=== PATIENT | female | born 1990 | race Caucasian/White ===

== ENCOUNTER 2016-12-29 09:28 | Emergency (ER) | payer MEDICAID ==
[~2016-12-29] VITALS: Ht 172.7 cm; Wt 82.0 kg
[~2016-12-29 09:28] MED LIST: IBUP800T23 PO; MELO7.5; NORC10TA2 PO; walking boot
[2016-12-29 09:31] VITALS: BP 150/96; PULSE 125; RESP 16; TEMP 98.8; O2SAT 100
[2016-12-29] MEDS ORDERED: KETOROLAC TROMETHAMINE 60 MG/2 ML (IM) VIAL IM ONE (09:45)
--- NOTE | 2016-12-29 09:48 | PD ---
HPI Chief Complaint: Injury Time Seen by Provider: 09:38 Travel History International Travel<30 days: No Contact w/Intl Traveler<30days: No Traveled to known affect area: No History of Present Illness HPI 26yo F with no significant PMH presents to the ED with c/o right middle finger pain s/p fall yesterday. Pt slipped on shoe and fell with outstretched hands yesterday and thinks she stubbed her right middle finger. She woke up with more pain in her right middle finger and came to the ED for evaluation. Denies any numbness, weakness, fever, head injury, chest pain, sob, n/v, abdominal pain. Pt did not take any pain medication at home. PFSH Past Medical History Hx Anticoagulant Therapy: No Diabetes: No ?: Not : 2 Para: 1 Tubal Ligation: Yes Past Surgical History Tonsillectomy: Yes Social History Alcohol Use: No Tobacco Use: Yes (1/2 PPD) Substance Use: No Allergies-Medications (Allergen,Severity, Reaction): Coded Allergies: No Known Allergies (Unverified , 12/29/16) Reported Meds & Prescriptions Reported Meds & Active Scripts Active Ibuprofen 600 Mg Tab 600 Mg PO Q8HR PRN Review of Systems Except as stated in HPI: all other systems reviewed are Neg Physical Exam Narrative GENERAL: 26yo F not in distress. SKIN: Warm and dry. HEAD: Atraumatic. Normocephalic. NECK: Trachea midline. No JVD. CARDIOVASCULAR: Regular rate and rhythm. No murmur appreciated. RESPIRATORY: No accessory muscle use. Clear to auscultation. Breath sounds equal bilaterally. GASTROINTESTINAL: Abdomen soft, non-tender, nondistended. MUSCULOSKELETAL: Right hand: +TTP 3rd MCP and PIP. Able to flex and extend all joints. Sensation intact. Radial pulse 2+. Cap refill <2 sec. No open wounds. Mild swelling 3rd PIP. No scaphoid ttp. NEUROLOGICAL: Awake and alert. No obvious cranial nerve deficits. Motor grossly within normal limits. Normal speech. PSYCHIATRIC: Appropriate mood and affect; insight and judgment normal. Data Data Last Documented VS Vital Signs Date Time Temp Pulse Resp B/P Pulse Ox O2 Delivery O2 Flow Rate FiO2 12/29/16 11:06 77 16 124/92 99 Room Air 12/29/16 09:31 98.8 Orders Hand, Limited (2vws) (12/29/16 ) Ketorolac Inj (Toradol Inj) (12/29/16 09:45) MDM Medical Decision Making Medical Screen Exam Complete: Yes Emergency Medical Condition: Yes Differential Diagnosis Contusion vs. fracture vs. dislocation Narrative Course 26yo F with right middle finger pain s/p fall yesterday. Xray right hand showed soft tissue swelling third finger. No acute fracture. Pt needs to type for work so will give work note for 2 days. She is right handed. Toradol given with improvement of pain. Return precautions given. HR initially was documented as 125bpm. HR was repeated after toradol and it is 77. Diagnosis Primary Impression: Finger contusion Qualified Code: S60.031A - Contusion of right middle finger without damage to nail, initial encounter Patient Instructions: General Instructions Departure Forms: Tests/Procedures, Work Release Enter return to work date: Jan 02, 2017 Additional Instructions: Please follow up with your PMD in 3-7 days. Please return to the ED if symptoms worsen. Med/Other Pt SpecificInfo: Prescription(s) given Scripts Ibuprofen 600 Mg [id number] Mg PO Q8HR PRN (PAIN) #20 TAB Ref 0 Prov:Lety Morgan DO 12/29/16 Disposition: 01 DISCHARGE HOME Condition: Stable Lety Morgan DO Dec 29, 2016 09:48 Lety Morgan DO Dec 29, 2016 09:48
--- NOTE | 2016-12-29 10:15 | RADHPO ---
EXAM DATE/TIME: 12/29/2016 09:48 [facility] COMPARISON: No previous studies available for comparison. INDICATIONS : Fell last night and injured right hand, pain and swelling around the third digit MEDICAL HISTORY : None. SURGICAL HISTORY : None. ENCOUNTER: Initial ACUITY: 1 day PAIN SCORE: 10/10 LOCATION: Right hand FINDINGS: Two view examination of the right hand demonstrates no dislocation, or fracture. The joint spaces a re maintained. Bony mineralization is normal. CONCLUSION: 1. Soft tissue swelling third finger. No acute fracture. Arias Joshi MD on December 29, 2016 at 10:13 Board Certified Radiologist. This report was verified electronically.
[2016-12-29] MEDS ORDERED: IBUP-232 PO (11:01)
[2016-12-29 11:06] VITALS: BP 124/92; PULSE 77; RESP 16; O2SAT 99
== END 2016-12-29 11:39 | disposition home or self-care (01) ==
LOC: PHED 09:28
DX: S60.031A Contusion of right middle finger without damage to nail, initial encounter (principal); F17.200 Nicotine dependence, unspecified, uncomplicated; W01.0XXA Fall on same level from slipping, tripping and stumbling without subsequent striking against object, initial encounter
CPT/HCPCS: 73120; 96372; 99283; J1885